=== PATIENT | male | born 1995 | race Caucasian/White ===

== ENCOUNTER 2025-01-08 23:52 | Emergency (ER) | payer MEDICAID ==
[~2025-01-08] VITALS: Ht 185.4 cm; Wt 84.3 kg
[2025-01-09 00:06] VITALS: TEMP 97.9
[2025-01-09 00:51] LABS: BILIRUBIN,URINE NEGATIVE (Neg); CLARITY,URINE CLEAR (Clear); COLOR,URINE YELLOW (Yellow); GLUCOSE, URINE NEGATIVE (Neg); KETONES,URINE NEGATIVE (Neg); LEUKOCYTE ESTERASE ,URINE NEGATIVE (Neg); NITRITES, URINE NEGATIVE (Neg); OCCULT BLOOD,URINE NEGATIVE (Neg); PH,URINE 7.5 (4.8-8.0); PROTEIN,URINE NEGATIVE (Neg); UROBILINOGEN,URINE 0.2 E.U/dL (0.2-1.0)
[2025-01-09 00:53] LABS: BASOPHILS % (AUTO) 0.4 % (0-1); EOSINOPHILS # (AUTO) 0.3 X10'3 (0-0.9); EOSINOPHILS % (AUTO) 5.4 % (0-6); HEMATOCRIT 41.5 % (42.0-52.0); HEMOGLOBIN 14.2 g/dl (14.0-17.9); LYMPHOCYTES # (AUTO) 1.9 X10'3 (1.1-4.8); LYMPHOCYTES % (AUTO) 32.9 % (21-51); MEAN CORPUSCULAR HGB CONC 34.3 g/dL (33.0-36.5); MEAN CORPUSCULAR VOLUME 84.5 FL (78-98); MEAN PLATELET VOLUME 7.7 FL (7.4-10.4); MONOCYTES # (AUTO) 0.3 X10'3 (0-0.9); MONOCYTES % (AUTO) 5.7 % (2-12); NEUTROPHILS # (AUTO) 3.1 X10'3 (1.8-7.7); NEUTROPHILS % (AUTO) 55.6 % (42-75); PLATELET COUNT 202 X10'3 (140-440); RED BLOOD COUNT 4.91 X10'6 (4.70-6.10); RED CELL DISTRIBUTION WIDTH 13.2 % (11.5-14.5); WHITE BLOOD COUNT 5.6 X10'3 (4.5-11.0)
[2025-01-09 00:58] LABS: ALANINE AMINOTRANSFERASE 21 U/L (12-78); ALBUMIN 4.1 G/DL (3.4-5.0); ALBUMIN/GLOBULIN RATIO 1.1 (1.1-1.5); ALKALINE PHOSPHATASE 75 IU/L (46-116); ANION GAP 12 (8-16); ASPARTATE AMINO TRANSFERASE 15 U/L (10-37); BILIRUBIN,TOTAL 0.3 MG/DL (0.1-1.0); BLOOD UREA NITROGEN 9 MG/DL (7-18); BUN/CREATININE RATIO 9.2 (10.0-20.0); CALCIUM 8.9 MG/DL (8.5-10.1); CHLORIDE 105 MMOL/L (99-107); CREATININE 0.98 MG/DL (0.60-1.10); GLUCOSE 114 MG/DL (70-104); LIPASE 29 U/L (16-77); POTASSIUM 3.7 MMOL/L (3.5-5.1); SODIUM 142 MMOL/L (135-145); TOTAL CARBON DIOXIDE 25.3 MMOL/L (24-32); TOTAL PROTEIN 7.9 G/DL (6.4-8.2); eCRCL 123 ML/MIN; eGFR 89 ML/MIN
[2025-01-09 01:02] LABS: UA COLLECTION TYPE CLN CATCH MIDSTREAM
[2025-01-09] MEDS: mag hydrox/Alum hydrox/simeth 30ml oral suspension PO ONE (04:30)
[2025-01-09] MEDS: LIDOcaine 2% Viscous 15ml cup MM ONE (04:30)
[2025-01-09] MEDS: ketorolac trometh 15mg/ml vial 15 MG/ML ML IV ONE (04:30)
[2025-01-09] MEDS: famotidine/PF 10 mg/ml inj IV ONE (04:31)
[2025-01-09] MEDS: pantoprazole 40 MG vial IV SCH (04:33)
[2025-01-09] MEDS: normal saline 1000ml 1,000 ML IV ONE (04:42)
[2025-01-09] MEDS: pantoprazole 40 MG vial IV ONE (04:42)
[2025-01-09] MEDS ORDERED: OMEP40CA21 PO (05:10)
[2025-01-09] MEDS ORDERED: ONDA-245 PO (05:11)
[2025-01-09 05:15] VITALS: BP 124/93; PULSE 78; RESP 16; O2SAT 94
[2025-01-09] MEDS ORDERED: ONDA-243 PO (16:56)
[2025-01-09] MEDS ORDERED: DICY10CA88 PO (16:56)
== END 2025-01-09 05:25 | disposition home or self-care (01) ==
LOC: ER 23:53
DX: K21.9 Gastro-esophageal reflux disease without esophagitis (principal); Z88.5 Allergy status to narcotic agent
CPT/HCPCS: 36415; 80053; 81003; 83690; 85025; 96361; 96374; 96375; 99284; J1885; J2470; J3490; J7030

== ENCOUNTER 2025-01-09 11:28 | Emergency (ER) | payer MEDICAID ==
[~2025-01-09] VITALS: Ht 185.4 cm; Wt 84.1 kg
[~2025-01-09 11:28] MED LIST: OMEP40CA21 PO; ONDA-245 PO
[2025-01-09 11:31] VITALS: TEMP 97.8
[2025-01-09 13:11] LABS: BASOPHILS % (AUTO) 0.2 % (0-1); EOSINOPHILS # (AUTO) 0.2 X10'3 (0-0.9); EOSINOPHILS % (AUTO) 2.9 % (0-6); HEMOGLOBIN 14.3 g/dl (14.0-17.9); LYMPHOCYTES # (AUTO) 1.3 X10'3 (1.1-4.8); MEAN CORPUSCULAR HGB CONC 34.1 g/dL (33.0-36.5); MEAN PLATELET VOLUME 7.7 FL (7.4-10.4); MONOCYTES # (AUTO) 0.4 X10'3 (0-0.9); MONOCYTES % (AUTO) 4.8 % (2-12); NEUTROPHILS # (AUTO) 5.8 X10'3 (1.8-7.7); NEUTROPHILS % (AUTO) 75.1 % (42-75); PLATELET COUNT 198 X10'3 (140-440); RED BLOOD COUNT 4.94 X10'6 (4.70-6.10); RED CELL DISTRIBUTION WIDTH 13.4 % (11.5-14.5); WHITE BLOOD COUNT 7.8 X10'3 (4.5-11.0)
[2025-01-09 13:36] LABS: ALANINE AMINOTRANSFERASE 26 U/L (12-78); ALBUMIN 4.1 G/DL (3.4-5.0); ALBUMIN/GLOBULIN RATIO 1.1 (1.1-1.5); ALKALINE PHOSPHATASE 74 IU/L (46-116); ANION GAP 10 (8-16); ASPARTATE AMINO TRANSFERASE 17 U/L (10-37); BILIRUBIN,TOTAL 0.8 MG/DL (0.1-1.0); BLOOD UREA NITROGEN 7 MG/DL (7-18); BUN/CREATININE RATIO 7.4 (10.0-20.0); CHLORIDE 107 MMOL/L (99-107); CREATININE 0.95 MG/DL (0.60-1.10); GLUCOSE 97 MG/DL (70-104); LIPASE 22 U/L (16-77); POTASSIUM 3.9 MMOL/L (3.5-5.1); SODIUM 141 MMOL/L (135-145); TOTAL CARBON DIOXIDE 24.5 MMOL/L (24-32); TOTAL PROTEIN 7.8 G/DL (6.4-8.2); eCRCL 127 ML/MIN; eGFR > 90 ML/MIN
[2025-01-09 16:19] LABS: BILIRUBIN,URINE NEGATIVE (Neg); CLARITY,URINE CLEAR (Clear); COLOR,URINE YELLOW (Yellow); GLUCOSE, URINE NEGATIVE (Neg); KETONES,URINE NEGATIVE (Neg); LEUKOCYTE ESTERASE ,URINE NEGATIVE (Neg); NITRITES, URINE NEGATIVE (Neg); OCCULT BLOOD,URINE NEGATIVE (Neg); PROTEIN,URINE NEGATIVE (Neg); UROBILINOGEN,URINE 0.2 E.U/dL (0.2-1.0)
[2025-01-09 16:24] LABS: UA COLLECTION TYPE CLN CATCH MIDSTREAM
[2025-01-09] MEDS: HYDROcodone/acetaminophen 5mg/325mg tablet PO ONE (16:46)
[2025-01-09] MEDS: ketorolac trometh 30MG/ML vial 30 MG/ML VIAL IM ONE (16:47)
[2025-01-09] MEDS: dicyclomine 10 MG capsule PO ONE (16:47)
[2025-01-09] MEDS: ondansetron 4mg rapidly disintigrating tab PO ONE (16:47)
[2025-01-09] MEDS ORDERED: ONDA-243 PO (16:56)
[2025-01-09] MEDS ORDERED: DICY10CA88 PO (16:56)
[2025-01-09 16:59] LABS: URINE AMPHETAMINE SCREEN NEGATIVE (Neg); URINE BARBITUATE SCREEN NEGATIVE (Neg); URINE BENZODIAZEPINES SCREEN NEGATIVE (Neg); URINE CANNABINOID SCREEN POSITIVE (Neg); URINE COCAINE SCREEN NEGATIVE (Neg); URINE METHADONE SCREEN NEGATIVE (Neg); URINE OPIATE SCREEN NEGATIVE (Neg); URINE PHENCYCLIDINE SCREEN NEGATIVE (Neg)
[2025-01-09 17:27] VITALS: BP 137/87; PULSE 87; RESP 15; O2SAT 98
== END 2025-01-09 17:32 | disposition home or self-care (01) ==
LOC: ER 11:28
DX: K52.9 Noninfective gastroenteritis and colitis, unspecified (principal); Z88.5 Allergy status to narcotic agent
CPT/HCPCS: 36415; 74176; 80053; 80305; 81003; 83690; 85025; 96372; 99285; J1885